=== PATIENT | female | born 1985 ===

== ENCOUNTER 2018-01-28 12:45 | Emergency (ER) | payer OTHER ==
[2018-01-28 13:00] VITALS: RESP 18
[2018-01-28] MEDS ORDERED: Rabies Immune Globulin 150 INTLU/ML VIAL IM ONE (13:20)
[2018-01-28] MEDS ORDERED: Amoxicillin-Clav 875-125 mg Tab PO STA (13:21)
--- NOTE | 2018-01-28 13:29 | ED PDOC ---
Arrival/HPI - General Chief Complaint: Bite Time Seen by Provider: 01/28/18 13:20 Historian: Patient - History of Present Illness Narrative History of Present Illness (Text): 01/28/18 13:25 32-year-old female presents today with a cat bite to the volar aspect of the right wrist. Patient states she took in stray cats yesterday and they were about to escape and she tried to get them and in the commotion sustained a scratch or bite to the volar aspect of the wrist. Patient states her tetanus shot is up-to-date patient presents today for rabies vaccine. Patient denies numbness weakness or tingling in the extremities. Denies fevers or chills. Denies pain. No other complaints . Past Medical History - Provider Review Nursing Documentation Reviewed: Yes - Travel History Have you recently traveled outside [place] w/in the past 3 mons?: No - Integumentary Hx Eczema: Yes - Psychiatric Hx Substance Use: No - Anesthesia Hx Anesthesia: No Family/Social History - Physician Review Nursing Documentation Reviewed: Yes Family/Social History: Unknown Family HX Smoking Status: Never Smoked Hx Alcohol Use: Yes Frequency of alcohol use: Socially Hx Substance Use: No Allergies/Home Meds Allergies/Adverse Reactions: Allergies No Known Allergies Allergy (Verified 01/28/18 12:52) Review of Systems - Review of Systems Constitutional: absent: Fatigue, Fevers Respiratory: absent: SOB, Cough Cardiovascular: absent: Chest Pain, Palpitations Gastrointestinal: absent: Abdominal Pain Genitourinary Female: absent: Dysuria Musculoskeletal: absent: Arthralgias, Back Pain, Neck Pain Skin: Rash (cat bite) Neurological: absent: Headache, Dizziness Psychiatric: absent: Anxiety, Depression Physical Exam Vital Signs Reviewed: Yes Vital Signs Temp Pulse Resp BP Pulse Ox 01/28/18 12:59 98.5 F 72 18 109/65 98 01/28/18 12:53 98.5 F 72 16 109/70 97 Temperature: Afebrile Blood Pressure: Normal Pulse: Regular Respiratory Rate: Normal Appearance: Positive for: Well-Appearing, Non-Toxic, Comfortable Pain Distress: None Mental Status: Positive for: Alert and Oriented X 3 - Systems Exam Head: Present: Atraumatic Neck: Present: Normal Range of Motion Respiratory/Chest: Present: Clear to Auscultation, Good Air Exchange. No: Respiratory Distress, Accessory Muscle Use Cardiovascular: Present: Regular Rate and Rhythm, Normal S1, S2. No: Murmurs Upper Extremity: Present: Normal ROM, NORMAL PULSES, Neurovascularly Intact, Capillary Refill < 2s, Other (right volar wrist; + 3 small puncture wounds noted to volar aspect of wrist; non tender; no surrounding erythema; full rom of hand and wrist. sensation and distal pulses intact. cap refill <2. ). No: Tenderness, Swelling, Erythema, Deformity Neurological: Present: GCS=15, Speech Normal Skin: Present: Warm, Dry, Normal Color Psychiatric: Present: Alert, Oriented x 3 Medical Decision Making ED Course and Treatment: 01/28/18 13:30 Patient is nontoxic well-appearing in no distress. Vital signs are stable. Tetanus up to date Wound irrigated well with copious amounts of high-pressure irrigation using normal saline Augmentin 875 mg p.o. pt was given 0.7ml of rabies immunoglobulin to the cat bite on the volar aspect of the wrist. rabines immunoglobulin and rabines vaccine given Patient was advised to keep the wound clean and dry, apply bacitracin twice daily, take antibiotics as prescribed and return immediately if symptoms worsen persist or if new symptoms develop patient was advised to return on day 3, 7, and 14 for continuation of rabies vaccine. Patient verbalizes understanding of discharge instructions and need for immediate followup. all aspects of this case were discussed the attending of record. Impression: cat bite, puncture wounds Motrin one tablet every 6 hours as needed for pain Augmentin: Twice daily x10 days Keep the wound clean and dry, apply bacitracin twice daily return on day 3-January 31, day 7-February 04, day 14-February 11 for continuation of rabies vaccine. Return immediately if symptoms worsen persist or if new symptoms develop: High fevers, increasing pain, increasing redness, swelling or if any other concerning symptoms develop. - Medication Orders Current Medication Orders: Rabies Immune Globulin (Imogam) 1,120 intlu IM .ONCE ONE Stop: 01/28/18 13:21 Rabies Vaccine Human Diploid Cell (Rabavert Vaccine Inj) units IM .ONCE ONE Stop: 01/28/18 13:21 Discontinued Medications Amoxicillin/Clavulanate Potassium (Augmentin 875 Mg-125 Mg Tab) 1 tab PO STAT STA; Protocol Stop: 01/28/18 13:22 Disposition/Present on Arrival - Present on Arrival Any Indicators Present on Arrival: No History of DVT/PE: No History of Uncontrolled Diabetes: No Urinary Catheter: No History of Decub. Ulcer: No History Surgical Site Infection Following: None - Disposition Have Diagnosis and Disposition been Completed?: Yes Diagnosis: Cat bite Disposition: HOME/ ROUTINE Disposition Time: 13:46 Patient Plan: Discharge Condition: GOOD Discharge Instructions (ExitCare): Animal Bites (DC) Additional Instructions: Motrin one tablet every 6 hours as needed for pain Augmentin: Twice daily x10 days Keep the wound clean and dry, apply bacitracin twice daily return on day 3-January 31, day 7-February 04, day 14-February 11 for continuation of rabies vaccine. Return immediately if symptoms worsen persist or if new symptoms develop: High fevers, increasing pain, increasing redness, swelling or if any other concerning symptoms develop. Prescriptions: Amoxicillin/Clavulanate [Augmentin 875 MG-125 MG] 1 tab PO BID #20 tab Bacitracin OINT 1 applic TP BID #1 tube Ibuprofen [Motrin Tab] 400 mg PO Q6H PRN #20 tab PRN Reason: Pain, Mild (1-3) Referrals: [facility] [Outside] - Follow up with primary Erin Lancaster MD [Medical Doctor] - Follow up with primary Giovana Leon MD [Staff Provider] - Follow up with primary Forms: [facility] [facility] (Vietnamese), WORK NOTE
[2018-01-28 14:35] VITALS: BP 114/70; PULSE 67; TEMP 98.4; O2SAT 99
== END 2018-01-28 14:34 | disposition home or self-care (01) ==
LOC: ED 12:45 → MERGE 12:45 → ED 14:34
DX: S61.531A Puncture wound without foreign body of right wrist, initial encounter (principal); W55.01XA Bitten by cat, initial encounter; Y92.9 Unspecified place or not applicable; Z23 Encounter for immunization

== ENCOUNTER 2018-02-11 10:24 | Emergency (ER) | payer OTHER ==
[2018-02-11 10:25] VITALS: BMI 23.6
[2018-02-11 10:32] VITALS: BP 111/75; PULSE 64; RESP 16; TEMP 98.7; O2SAT 99
--- NOTE | 2018-02-11 10:55 | ED PDOC ---
Arrival/HPI - General Chief Complaint: Rabies Vaccine Series Time Seen by Provider: 02/11/18 10:54 - History of Present Illness Narrative History of Present Illness (Text): 02/11/18 11:22 32 year old female with a past medical history of a cat bite wound presents to the ED for her fourth and final rabies vaccination. Patient reports that 2 weeks ago she was bit by a stray cat she rescued. Patient was seen in ED at the time of initial injury. Patient took prescribed antibiotics as directed. Patient denies having any fevers, complications at wound site, or any other complaints. Tetanus is up to date. Otherwise: (-) numbness or paresthesias, (-) other injury. PMD: Luis A NAILS Past Medical History - Provider Review Nursing Documentation Reviewed: Yes - Infectious Disease Hx of Infectious Diseases: None - Reproductive Menopause: No - Integumentary Hx Eczema: Yes - Psychiatric Hx Substance Use: No - Anesthesia Hx Anesthesia: No Family/Social History - Physician Review Nursing Documentation Reviewed: Yes Family/Social History: No Known Family HX Smoking Status: Never Smoked Hx Alcohol Use: Yes Hx Substance Use: No Allergies/Home Meds Allergies/Adverse Reactions: Allergies latex Allergy (Verified 02/04/18 15:34) RASH Review of Systems - Physician Review All systems were reviewed & negative as marked: Yes - Review of Systems Constitutional: Normal Eyes: Normal ENT: Normal Respiratory: Normal Cardiovascular: Normal Gastrointestinal: Normal Genitourinary Female: Normal Musculoskeletal: Normal Skin: Other (well-healed cat bite to right ventral wrist) Neurological: Normal Endocrine: Normal Hemo/Lymphatic: Normal Psychiatric: Normal Physical Exam Vital Signs Reviewed: Yes Vital Signs Temp Pulse Resp BP Pulse Ox 02/11/18 10:30 98.7 F 64 16 111/75 99 Temperature: Afebrile Blood Pressure: Normal Pulse: Regular Respiratory Rate: Normal Appearance: Positive for: Well-Appearing, Non-Toxic, Comfortable Pain Distress: None Mental Status: Positive for: Alert and Oriented X 3 - Systems Exam Head: Present: Atraumatic, Normocephalic Pupils: Present: PERRL Extroacular Muscles: Present: EOMI Conjunctiva: Present: Normal Mouth: Present: Moist Mucous Membranes Neck: Present: Normal Range of Motion Respiratory/Chest: Present: Clear to Auscultation, Good Air Exchange. No: Respiratory Distress, Accessory Muscle Use Cardiovascular: Present: Regular Rate and Rhythm, Normal S1, S2. No: Murmurs Abdomen: No: Tenderness, Distention, Peritoneal Signs Back: Present: Normal Inspection Upper Extremity: Present: Normal ROM, NORMAL PULSES, Swelling, Neurovascularly Intact, Capillary Refill < 2s, Other (well-healed bite to ventral right wrist; eczema to right hand webspaces and wrist, per patient's baseline ). No: Cyanosis, Edema, Tenderness, Erythema, Temperature Abnormalties, Deformity Lower Extremity: Present: Normal Inspection. No: Edema Neurological: Present: GCS=15, CN II-XII Intact, Speech Normal Skin: Present: Warm, Dry, Normal Color. No: Rashes Lymphatic: No: Cervical Adenopathy Psychiatric: Present: Alert, Oriented x 3, Normal Insight, Normal Concentration Medical Decision Making ED Course and Treatment: Initial Plan * rabies vaccination Impression Encounter for Rabies Vaccination Plan Followup with primary as needed Return to ER for new or worsening symptoms Disposition/Present on Arrival - Present on Arrival Any Indicators Present on Arrival: No History of DVT/PE: No History of Uncontrolled Diabetes: No Urinary Catheter: No History of Decub. Ulcer: No History Surgical Site Infection Following: None - Disposition Have Diagnosis and Disposition been Completed?: Yes Diagnosis: Encounter for repeat administration of rabies vaccination Disposition: HOME/ ROUTINE Disposition Time: 11:10 Patient Plan: Discharge Condition: GOOD Additional Instructions: Followup with primary doctor as needed Return to ER for new/worsening symptoms Referrals: Erin Lancaster MD [Medical Doctor] - Follow up with primary Forms: [employer] (N[place]ian), WORK NOTE
== END 2018-02-11 11:25 | disposition home or self-care (01) ==
LOC: ED 10:24
DX: Z23 Encounter for immunization (principal)